=== PATIENT | female | born 1985 | race Hispanic/Latino ===

== ENCOUNTER 2018-12-02 15:32 | Emergency (ER) | payer MEDICAID, OTHER | END 2018-12-02 16:02 | disposition home or self-care (01) | LOC: EDH 15:32 | DX: F41.9 Anxiety disorder, unspecified (principal); Z98.51 Tubal ligation status ==

== ENCOUNTER → 2023-08-06 | Outpatient (CLI) | payer OTHER | END | disposition home or self-care (01) | LOC: RAH 08:47 | PROVIDERS: ATTEND Internal Medicine | DX: N83.201 Unspecified ovarian cyst, right side (principal); N83.209 Unspecified ovarian cyst, unspecified side | CPT/HCPCS: 76856 ==